=== PATIENT | female | born 1935 | race Hispanic/Latino ===

== ENCOUNTER 2020-10-27 19:49 | Inpatient (IN) | payer BC, OTHER ==
[~2020-10-27] VITALS: Ht 129.5 cm; Wt 47.2 kg
[~2020-10-27 19:49] MED LIST: GLUCAGON FOR INJ 1 MG VIAL ONE
[2020-10-27 20:47] LABS: BASOPHILS % 0.7 % (0.0-1.0); EOSINOPHILS % 0.6 % (0.0-6.0); HEMATOCRIT 32.1 % (34.2-44.1); HEMOGLOBIN 10.4 g/dL (12.0-16.0); LYMPHOCYTES # (AUTO) 1.4 (1.0-3.2); LYMPHOCYTES % 26.1 % (18.0-39.1); MEAN CORPUSCULAR HEMOGLOBIN 30.3 pg (28-32); MEAN CORPUSCULAR HGB CONC 32.4 g/dL (31-35); MEAN CORPUSCULAR VOLUME 93.6 fL (81-99); MONOCYTES # (AUTO) 0.3 (0.2-0.8); MONOCYTES % 5.4 % (4.4-11.3); NEUTROPHILS # (AUTO) 3.6 (2.1-6.9); PLATELET COUNT 230 x10e3/uL (140-360); RED BLOOD COUNT 3.43 x10e6/uL (3.6-5.1); RED CELL DISTRIBUTION WIDTH 14.3 % (11.7-14.4)
[2020-10-27 20:58] LABS: ALANINE AMINOTRANSFERASE 14 IU/L (0-55); ALBUMIN 3.8 g/dL (3.5-5.0); ALBUMIN/GLOBULIN RATIO 1.3 (0.8-2.0); ALKALINE PHOSPHATASE 102 IU/L (40-150); BLOOD UREA NITROGEN 31 mg/dL (7-26); BUN/CREATININE RATIO 40 (6-25); CALCIUM 8.4 mg/dL (8.4-10.2); CARBON DIOXIDE 28 mmol/L (22-29); CHLORIDE 105 mmol/L (98-107); CREATINE KINASE 73 IU/L (29-168); CREATININE, SERUM 0.78 mg/dL (0.57-1.11); EST GLOMERULAR FILTRATION RATE > 60 ML/MIN (60-); GLUCOSE 124 mg/dL (74-118); SODIUM 144 mmol/L (136-145)
[2020-10-27] MEDS ORDERED: IOPAMIDOL 370 MG/ML 200 ML INFUS..BTL INJ ONE (22:11)
[2020-10-27] MEDS ORDERED: SODIUM CHLORIDE 0.9% 50ML 50 ML ONE (22:11)
[2020-10-27] MEDS ORDERED: ONDANSETRON HCL INJ 2MG/ML 2ML 2 MG/ML VIAL IV PRN (22:45)
[2020-10-27] MEDS ORDERED: LOSARTAN POTAS100 MG PO (23:17)
[2020-10-27 23:28] LABS: INR 0.94; PROTHROMBIN TIME 13.2 seconds (11.9-14.5)
[2020-10-27] MEDS: AMLODIPINE BESYLATE 10 MG TAB PO SCH (23:44)
[2020-10-27] MEDS ORDERED: HYDRALAZINE HCL 20 MG/ML VIAL IV PRN (23:45)
[2020-10-28] VITALS (7 sets, daily range): BP systolic 143–149; BP diastolic 54–73
[2020-10-28] MEDS ORDERED: ACETAMINOPHEN 325 MG TAB PO PRN (06:00)
[2020-10-28 07:28] LABS: BASOPHILS % 0.7 % (0.0-1.0); EOSINOPHILS # (AUTO) 0.2 (0.0-0.4); HEMATOCRIT 28.6 % (34.2-44.1); HEMOGLOBIN 9.2 g/dL (12.0-16.0); LYMPHOCYTES # (AUTO) 1.8 (1.0-3.2); LYMPHOCYTES % 33.9 % (18.0-39.1); MEAN CORPUSCULAR HEMOGLOBIN 30.1 pg (28-32); MEAN CORPUSCULAR HGB CONC 32.2 g/dL (31-35); MEAN CORPUSCULAR VOLUME 93.5 fL (81-99); MONOCYTES # (AUTO) 0.5 (0.2-0.8); NEUTROPHILS # (AUTO) 2.9 (2.1-6.9); NEUTROPHILS % 53.2 % (38.7-80.0); PLATELET COUNT 206 x10e3/uL (140-360); RED BLOOD COUNT 3.06 x10e6/uL (3.6-5.1); RED CELL DISTRIBUTION WIDTH 14.4 % (11.7-14.4)
[2020-10-28 07:49] LABS: ANION GAP 10.5 mmol/L (8-16); BLOOD UREA NITROGEN 24 mg/dL (7-26); BUN/CREATININE RATIO 38 (6-25); CALCIUM 8.2 mg/dL (8.4-10.2); CARBON DIOXIDE 27 mmol/L (22-29); CHLORIDE 108 mmol/L (98-107); CREATININE, SERUM 0.64 mg/dL (0.57-1.11); EST GLOMERULAR FILTRATION RATE > 60 ML/MIN (60-); GLUCOSE 98 mg/dL (74-118); POTASSIUM 3.5 mmol/L (3.5-5.1); SODIUM 142 mmol/L (136-145)
[2020-10-28] MEDS ORDERED: BISACODYL 5 MG TAB EC PO ONE ×2 (11:30→12:00)
[2020-10-28] MEDS ORDERED: CITRATE OF MAGNESIA 300ML BOTTLE PO ONE ×2 (13:00→14:00)
[2020-10-28 13:04] LABS: FERRITIN 32.2 ng/mL (4.63-204.00)
[2020-10-29] VITALS (9 sets, daily range): BP systolic 117–172; BP diastolic 54–70
[2020-10-29] MEDS ORDERED: CITRATE OF MAGNESIA 300ML BOTTLE PO ONE
[2020-10-29 05:46] LABS: % IRON SATURATION 22 % (15-50); IRON 79 ug/dL (50-170); TOTAL IRON BINDING CAPACITY 356 ug/dL (261-478); TRANSFERRIN 254 mg/dL (180-382)
[2020-10-29] MEDS: AMLODIPINE BESYLATE 10 MG TAB PO SCH (09:00)
[2020-10-29] MEDS: CYANOCOBALAMIN INJ 1,000 MCG/ML VIAL IM SCH (09:39)
[2020-10-29] MEDS ORDERED: FENTANYL CITRATE/PF 100MCG/2 ML INJ ONE (12:32)
[2020-10-29] MEDS ORDERED: PROPOFOL IV EMULSION 10 MG/ML 20 ML VIAL ONE (12:56)
[2020-10-29] MEDS ORDERED: LIDOCAINE HCL 2% LOCAL INJ 5 ML SDV VIAL INJ ONE (12:56)
[2020-10-30] VITALS (7 sets, daily range): BP systolic 126–175; BP diastolic 45–96
[2020-10-30 06:16] LABS: BASOPHILS # (AUTO) 0.1 (0.0-0.1); BASOPHILS % 1.2 % (0.0-1.0); EOSINOPHILS # (AUTO) 0.2 (0.0-0.4); EOSINOPHILS % 4.2 % (0.0-6.0); HEMATOCRIT 27.2 % (34.2-44.1); HEMOGLOBIN 8.4 g/dL (12.0-16.0); LYMPHOCYTES # (AUTO) 1.4 (1.0-3.2); LYMPHOCYTES % 33.3 % (18.0-39.1); MEAN CORPUSCULAR HEMOGLOBIN 29.7 pg (28-32); MEAN CORPUSCULAR HGB CONC 30.9 g/dL (31-35); MEAN CORPUSCULAR VOLUME 96.1 fL (81-99); MONOCYTES # (AUTO) 0.3 (0.2-0.8); NEUTROPHILS # (AUTO) 2.3 (2.1-6.9); NEUTROPHILS % 53.1 % (38.7-80.0); PLATELET COUNT 202 x10e3/uL (140-360); RED BLOOD COUNT 2.83 x10e6/uL (3.6-5.1); RED CELL DISTRIBUTION WIDTH 14.4 % (11.7-14.4)
[2020-10-30] MEDS ORDERED: NORVASC10 MG PO (06:28)
[2020-10-30] MEDS ORDERED: ANUSOL-HC25 MG RC (06:34)
[2020-10-30 06:43] LABS: ANION GAP 12.4 mmol/L (8-16); BLOOD UREA NITROGEN 22 mg/dL (7-26); BUN/CREATININE RATIO 32 (6-25); CALCIUM 8.1 mg/dL (8.4-10.2); CARBON DIOXIDE 25 mmol/L (22-29); CHLORIDE 111 mmol/L (98-107); CREATININE, SERUM 0.68 mg/dL (0.57-1.11); EST GLOMERULAR FILTRATION RATE > 60 ML/MIN (60-); GLUCOSE 83 mg/dL (74-118); POTASSIUM 3.4 mmol/L (3.5-5.1); SODIUM 145 mmol/L (136-145)
[2020-10-30] MEDS: CYANOCOBALAMIN INJ 1,000 MCG/ML VIAL IM SCH (09:08)
[2020-10-30] MEDS: AMLODIPINE BESYLATE 10 MG TAB PO SCH (09:08)
[2020-10-30] MEDS: PANTOPRAZOLE 40 MG 10ML VIAL IV SCH ×2 (10:16→18:34)
[2020-10-30 16:16] LABS: HEMATOCRIT 28.3 % (34.2-44.1); HEMOGLOBIN 8.8 g/dL (12.0-16.0)
[2020-10-31] VITALS: BP 118/58
[2020-10-31 04:00] VITALS: BP 121/67
[2020-10-31 05:44] LABS: BASOPHILS % 0.6 % (0.0-1.0); EOSINOPHILS # (AUTO) 0.1 (0.0-0.4); HEMOGLOBIN 8.3 g/dL (12.0-16.0); LYMPHOCYTES # (AUTO) 1.7 (1.0-3.2); LYMPHOCYTES % 37.1 % (18.0-39.1); MEAN CORPUSCULAR HEMOGLOBIN 30.2 pg (28-32); MEAN CORPUSCULAR HGB CONC 31.9 g/dL (31-35); MEAN CORPUSCULAR VOLUME 94.5 fL (81-99); MONOCYTES # (AUTO) 0.4 (0.2-0.8); MONOCYTES % 8.4 % (4.4-11.3); NEUTROPHILS # (AUTO) 2.4 (2.1-6.9); NEUTROPHILS % 50.7 % (38.7-80.0); PLATELET COUNT 189 x10e3/uL (140-360); RED BLOOD COUNT 2.75 x10e6/uL (3.6-5.1); RED CELL DISTRIBUTION WIDTH 14.2 % (11.7-14.4)
[2020-10-31 05:58] LABS: ALANINE AMINOTRANSFERASE 13 IU/L (0-55); ALBUMIN/GLOBULIN RATIO 1.3 (0.8-2.0); ALKALINE PHOSPHATASE 80 IU/L (40-150); ANION GAP 11.7 mmol/L (8-16); BLOOD UREA NITROGEN 25 mg/dL (7-26); BUN/CREATININE RATIO 37 (6-25); CALCIUM 8.1 mg/dL (8.4-10.2); CARBON DIOXIDE 27 mmol/L (22-29); CHLORIDE 110 mmol/L (98-107); CREATININE, SERUM 0.68 mg/dL (0.57-1.11); EST GLOMERULAR FILTRATION RATE > 60 ML/MIN (60-); GLUCOSE 95 mg/dL (74-118); POTASSIUM 3.7 mmol/L (3.5-5.1); SODIUM 145 mmol/L (136-145)
[2020-10-31 07:53] VITALS: BP_SYST 149
[2020-10-31 08:29] VITALS: BP_SYST 149; BP_DIAS 67; BP_DIAS 71
[2020-10-31] MEDS: PANTOPRAZOLE 40 MG 10ML VIAL IV SCH ×2 (08:35→17:00)
[2020-10-31] MEDS: CYANOCOBALAMIN INJ 1,000 MCG/ML VIAL IM SCH (08:35)
[2020-10-31] MEDS: AMLODIPINE BESYLATE 10 MG TAB PO SCH (08:35)
[2020-10-31 11:43] VITALS: BP 141/54
[2020-10-31 15:49] VITALS: BP 166/70
== END 2020-10-31 19:20 | disposition home or self-care (01) | DRG 378 ==
LOC: ER 21:44 → ERHOLD 22:43 → MED/SURG 10-28 01:30
PROVIDERS: ADMIT Internal Medicine; ATTEND Internal Medicine
PROC: 0DJD8ZZ Inspection of Lower Intestinal Tract, Via Natural or Artificial Opening Endoscopic (ICD-10-PCS; principal; 2020-10-29 16:30)
DX: K57.31 Diverticulosis of large intestine without perforation or abscess with bleeding (principal); D62 Acute posthemorrhagic anemia; N28.89 Other specified disorders of kidney and ureter; I10 Essential (primary) hypertension; Z20.822 Contact with and (suspected) exposure to COVID-19; K21.9 Gastro-esophageal reflux disease without esophagitis; K52.9 Noninfective gastroenteritis and colitis, unspecified; K64.8 Other hemorrhoids
CPT/HCPCS: 36415; 45378; 74174; 80048; 80053; 82550; 82553; 82607; 82728; 82746; 83540; 84466; 84484; 85014; 85018; 85025; 85045; 85610; 86850; 86900; 99251; 99284; J0360; J1610; J2001; J3010; J3420; Q9967; U0002

== ENCOUNTER 2021-02-11 00:10 | Emergency (ER) | payer OTHER ==
[~2021-02-11] VITALS: Ht 129.5 cm; Wt 47.2 kg
[~2021-02-11 00:10] MED LIST changes: +ANUSOL-HC25 MG RC; -GLUCAGON FOR INJ 1 MG VIAL ONE; +LOSARTAN POTAS100 MG PO; +NORVASC10 MG PO
[2021-02-11] MEDS: CLONIDINE HCL 0.2 MG TAB PO ONE (01:25)
== END 2021-02-11 05:31 | disposition home or self-care (01) ==
LOC: ER 00:13
DX: S01.111A Laceration without foreign body of right eyelid and periocular area, initial encounter (principal); S20.211A Contusion of right front wall of thorax, initial encounter; W01.0XXA Fall on same level from slipping, tripping and stumbling without subsequent striking against object, initial encounter; Y93.01 Activity, walking, marching and hiking; I10 Essential (primary) hypertension
CPT/HCPCS: 70450; 70486; 71250; 72125; 99283

== ENCOUNTER 2021-04-08 18:49 | Emergency (ER) | payer OTHER ==
[~2021-04-08] VITALS: Ht 129.5 cm; Wt 47.2 kg
[2021-04-08] MEDS ORDERED: CASIRIVIMAB/IMDEVIMAB 10 ML in SODIUM CHLORIDE 0.9% 100 ML IV ONE (19:00)
== END 2021-04-08 21:27 | disposition home or self-care (01) ==
LOC: ER 18:53
DX: R05 Cough (principal); U07.1 COVID-19; I10 Essential (primary) hypertension
CPT/HCPCS: 99282; J7050